=== PATIENT | female | born 2000 | race Caucasian/White ===

== ENCOUNTER 2023-01-08 18:03 | Inpatient (IN) | payer MEDICAID ==
[~2023-01-08] VITALS: Ht 165.1 cm; Wt 127.2 kg
[2023-01-08] MEDS ORDERED: MOM 30ML SUSPENSION UDC PO PRN (19:20)
[2023-01-09] VITALS (19 sets, daily range): BP systolic 118–160; BP diastolic 62–98; TEMP 96.5–98.2; O2SAT 96–99
[2023-01-09] MEDS ORDERED: LEXA1TAB PO (02:11)
[2023-01-09] MEDS ORDERED: LABE200T5 PO (02:11)
[2023-01-09] MEDS ORDERED: PANT40TA29 PO (02:11)
[2023-01-09] MEDS ORDERED: NORE0.353 PO (02:12)
[2023-01-09] MEDS ORDERED: HOME MED LIST COMPLETE! XX SCH (02:15)
[2023-01-09] MEDS: NS 1,000 ML IV SCH ×2 (02:19→10:42)
[2023-01-09 02:30] LABS: BASO % 0.4 % (0.0-1.0); EOS # 0.1 10^3/uL (0.0-0.5); EOS % 2.5 % (0.0-3.0); HEMATOCRIT 38.1 % (36.0-47.0); HEMOGLOBIN 12.7 g/dl (12.0-15.5); LYMPH # 1.5 10^3/uL (1.5-5.0); LYMPH % 29.2 % (24.0-44.0); MEAN CORPUSCULAR HGB CONC 33.3 g/dl (32.0-36.5); MEAN CORPUSCULAR VOLUME 90.1 fl (80.0-96.0); MONO # 0.4 10^3/uL (0.0-0.8); MONO % 7.8 % (2.0-8.0); NEUTROPHILS # 3.2 10^3/uL (1.5-8.5); NEUTROPHILS % 60.1 % (36.0-66.0); PLATELET COUNT, AUTOMATED 247 10^3/uL (150-450); RED BLOOD COUNT 4.23 10^6/uL (4.00-5.40); WHITE BLOOD COUNT 5.2 10^3/uL (4.0-10.0)
[2023-01-09 02:45] LABS: ALBUMIN 3.3 G/DL (3.2-5.2); ALKALINE PHOSPHATASE 357 U/L (46-116); ALT/SGPT 440 U/L (7.0-40); AST/SGOT 231 U/L (<34); BILIRUBIN,TOTAL 1.6 MG/DL (0.3-1.2); BLOOD UREA NITROGEN 7 MG/DL (9-23); CALCIUM LEVEL 8.8 MG/DL (8.5-10.1); CARBON DIOXIDE LEVEL 24 MMOL/L (20-31); CHLORIDE LEVEL 105 MMOL/L (98-107); CREATININE FOR GFR 0.59 MG/DL (0.55-1.30); GLOMERULAR FILTRATION RATE > 60.0 (>60); GLUCOSE, FASTING 107 MG/DL (60-100); POTASSIUM SERUM 3.7 MMOL/L (3.5-5.1); SODIUM LEVEL 137 MMOL/L (136-145)
[2023-01-09] MEDS ORDERED: MORPHINE 2 MG/ML 1ML VIAL IV PRN (03:00)
[2023-01-09] MEDS: HEPARIN SOD (PORCINE) 5000UNITS/ML 1ML VIAL/SYRINGE SC SCH (06:12)
[2023-01-09 08:09] LABS: HEMATOCRIT 36.6 % (36.0-47.0); HEMOGLOBIN 12.3 g/dl (12.0-15.5); MEAN CORPUSCULAR HEMOGLOBIN 30.7 pg (27.0-33.0); MEAN CORPUSCULAR HGB CONC 33.6 g/dl (32.0-36.5); MEAN CORPUSCULAR VOLUME 91.3 fl (80.0-96.0); PLATELET COUNT, AUTOMATED 221 10^3/uL (150-450); RED BLOOD COUNT 4.01 10^6/uL (4.00-5.40)
[2023-01-09] MEDS: HYDROMORPHONE HCL 0.5 MG/ 0.5 ML SYRINGE IV PRN ×5 (08:41→19:46)
[2023-01-09 08:45] LABS: ALBUMIN 3.2 G/DL (3.2-5.2); ALKALINE PHOSPHATASE 355 U/L (46-116); ALT/SGPT 423 U/L (7.0-40); AST/SGOT 191 U/L (<34); BLOOD UREA NITROGEN 7 MG/DL (9-23); CALCIUM LEVEL 8.7 MG/DL (8.5-10.1); CARBON DIOXIDE LEVEL 26 MMOL/L (20-31); CHLORIDE LEVEL 107 MMOL/L (98-107); CREATININE FOR GFR 0.63 MG/DL (0.55-1.30); GLOMERULAR FILTRATION RATE > 60.0 (>60); GLUCOSE, FASTING 101 MG/DL (60-100); POTASSIUM SERUM 3.9 MMOL/L (3.5-5.1); SODIUM LEVEL 142 MMOL/L (136-145); TOTAL PROTEIN 6.4 G/DL (5.7-8.2)
[2023-01-09] MEDS: ONDANSETRON 4MG 2ML VIAL IV PRN (14:25)
[2023-01-09] MEDS: PANTOPRAZOLE 40MG TAB (PROTONIX) PO SCH (14:25)
[2023-01-09] MEDS: LABETALOL 200 MG TAB PO SCH ×2 (14:26→20:01)
[2023-01-09] MEDS: ESCITALOPRAM OXALATE 10 MG TAB (LEXAPRO) PO SCH (14:27)
[2023-01-09] MEDS ORDERED: ISOVUE-300 61% 100ML VIAL As Ordered ONE (14:59)
[2023-01-09] MEDS ORDERED: ONDANSETRON 4MG 2ML VIAL As Ordered ONE (15:18)
[2023-01-09] MEDS ORDERED: MIDAZOLAM INJ 2MG/2ML VIAL As Ordered ONE (15:18)
[2023-01-09] MEDS ORDERED: propofoL 200 MG/20 ML VIAL As Ordered ONE (15:18)
[2023-01-09] MEDS ORDERED: ROCURONIUM BROMIDE 50MG/5ML VIAL As Ordered ONE (15:18)
[2023-01-09] MEDS ORDERED: LIDOCAINE 2% 100MG/5ML SDV (FOR ANES.) As Ordered ONE (15:18)
[2023-01-09] MEDS ORDERED: fentaNYL 250 MCG/5 ML INJECTION As Ordered ONE (15:18)
[2023-01-09] MEDS ORDERED: SUGAMMADEX SODIUM 500 MG/5 ML VIAL (BRIDION) As Ordered ONE (15:18)
[2023-01-10] VITALS (7 sets, daily range): BP systolic 124–140; BP diastolic 30–70; TEMP 96.8–97.9; O2SAT 95–98
[2023-01-10] MEDS ORDERED: UNRESOLVED CLARIFICATION ENTRY XX SCH (00:01)
[2023-01-10] MEDS: HYDROMORPHONE HCL 0.5 MG/ 0.5 ML SYRINGE IV PRN ×2 (01:37→05:17)
[2023-01-10 06:13] LABS: BASO % 0.1 % (0.0-1.0); EOS % 0.1 % (0.0-3.0); HEMATOCRIT 39.8 % (36.0-47.0); HEMOGLOBIN 13.3 g/dl (12.0-15.5); LYMPH # 1.1 10^3/uL (1.5-5.0); LYMPH % 15.4 % (24.0-44.0); MEAN CORPUSCULAR HEMOGLOBIN 30.2 pg (27.0-33.0); MEAN CORPUSCULAR HGB CONC 33.4 g/dl (32.0-36.5); MEAN CORPUSCULAR VOLUME 90.2 fl (80.0-96.0); MONO # 0.3 10^3/uL (0.0-0.8); MONO % 3.8 % (2.0-8.0); NEUTROPHILS # 5.7 10^3/uL (1.5-8.5); NEUTROPHILS % 80.3 % (36.0-66.0); PLATELET COUNT, AUTOMATED 262 10^3/uL (150-450); RED BLOOD COUNT 4.41 10^6/uL (4.00-5.40); WHITE BLOOD COUNT 7.2 10^3/uL (4.0-10.0)
[2023-01-10 06:46] LABS: ALBUMIN 3.5 G/DL (3.2-5.2); ALKALINE PHOSPHATASE 373 U/L (46-116); ALT/SGPT 377 U/L (7.0-40); AST/SGOT 107 U/L (<34); BILIRUBIN,DIRECT 0.5 MG/DL (<0.4); BILIRUBIN,TOTAL 0.9 MG/DL (0.3-1.2); BLOOD UREA NITROGEN 7 MG/DL (9-23); CALCIUM LEVEL 9.2 MG/DL (8.5-10.1); CARBON DIOXIDE LEVEL 25 MMOL/L (20-31); CHLORIDE LEVEL 104 MMOL/L (98-107); CREATININE FOR GFR 0.54 MG/DL (0.55-1.30); GLOMERULAR FILTRATION RATE > 60.0 (>60); GLUCOSE, FASTING 95 MG/DL (60-100); POTASSIUM SERUM 4.5 MMOL/L (3.5-5.1); SODIUM LEVEL 139 MMOL/L (136-145); TOTAL PROTEIN 7.1 G/DL (5.7-8.2)
[2023-01-10] MEDS: LABETALOL 200 MG TAB PO SCH ×2 (08:48→21:24)
[2023-01-10] MEDS: PANTOPRAZOLE 40MG TAB (PROTONIX) PO SCH (08:48)
[2023-01-10] MEDS: ESCITALOPRAM OXALATE 10 MG TAB (LEXAPRO) PO SCH (08:48)
[2023-01-10] MEDS: ACETAMINOPHEN TAB 650MG DOSE (2X325MG) PO PRN ×2 (08:55→12:23)
[2023-01-10] MEDS: HEPARIN SOD (PORCINE) 5000UNITS/ML 1ML VIAL/SYRINGE SC SCH ×2 (13:48→21:12)
[2023-01-10] MEDS: KETOROLAC 30 MG/ML 1ML VIAL IV PRN ×2 (14:46→21:13)
[2023-01-10] MEDS: oxyCODONE 5MG TAB PO PRN ×2 (18:17→22:46)
[2023-01-11] VITALS (7 sets, daily range): BP systolic 118–163; BP diastolic 58–105; TEMP 95.5–99.1; O2SAT 78–98
[2023-01-11] MEDS: LABETALOL 200 MG TAB PO SCH ×2 (00:33→08:35)
[2023-01-11] MEDS: HEPARIN SOD (PORCINE) 5000UNITS/ML 1ML VIAL/SYRINGE SC SCH ×3 (05:23→23:47)
[2023-01-11] MEDS: KETOROLAC 30 MG/ML 1ML VIAL IV PRN ×3 (05:27→23:48)
[2023-01-11 06:05] LABS: BASO % 0.2 % (0.0-1.0); EOS # 0.1 10^3/uL (0.0-0.5); EOS % 2.4 % (0.0-3.0); HEMOGLOBIN 12.9 g/dl (12.0-15.5); LYMPH # 2.7 10^3/uL (1.5-5.0); LYMPH % 49.4 % (24.0-44.0); MEAN CORPUSCULAR HEMOGLOBIN 30.4 pg (27.0-33.0); MEAN CORPUSCULAR HGB CONC 33.1 g/dl (32.0-36.5); MONO # 0.3 10^3/uL (0.0-0.8); MONO % 5.6 % (2.0-8.0); NEUTROPHILS # 2.3 10^3/uL (1.5-8.5); NEUTROPHILS % 42.2 % (36.0-66.0); PLATELET COUNT, AUTOMATED 238 10^3/uL (150-450); RED BLOOD COUNT 4.24 10^6/uL (4.00-5.40); WHITE BLOOD COUNT 5.4 10^3/uL (4.0-10.0)
[2023-01-11 06:44] LABS: ALBUMIN 3.2 G/DL (3.2-5.2); ALKALINE PHOSPHATASE 291 U/L (46-116); ALT/SGPT 271 U/L (7.0-40); AST/SGOT 75 U/L (<34); BILIRUBIN,DIRECT 0.3 MG/DL (<0.4); BILIRUBIN,TOTAL 0.7 MG/DL (0.3-1.2); BLOOD UREA NITROGEN 13 MG/DL (9-23); CALCIUM LEVEL 8.8 MG/DL (8.5-10.1); CARBON DIOXIDE LEVEL 28 MMOL/L (20-31); CHLORIDE LEVEL 105 MMOL/L (98-107); CREATININE FOR GFR 0.66 MG/DL (0.55-1.30); GLOMERULAR FILTRATION RATE > 60.0 (>60); GLUCOSE, FASTING 84 MG/DL (60-100); SODIUM LEVEL 141 MMOL/L (136-145); TOTAL PROTEIN 6.6 G/DL (5.7-8.2)
[2023-01-11] MEDS ORDERED: ceFAZolin SOD 3 GM in IV 1 EA IV ONE (07:55)
[2023-01-11] MEDS: PANTOPRAZOLE 40MG TAB (PROTONIX) PO SCH (08:32)
[2023-01-11] MEDS: ESCITALOPRAM OXALATE 10 MG TAB (LEXAPRO) PO SCH (08:32)
[2023-01-11 08:34] LABS: HCG, SERUM QUALITATIVE NEGATIVE (NEGATIVE)
[2023-01-11] MEDS ORDERED: ceFAZolin SOD 2 GM in IV 1 EA IV ONE (15:00)
[2023-01-11] MEDS ORDERED: ceFAZolin SOD 1 GM in D5W MINI-BAG PLUS 50 ML IV ONE (15:00)
[2023-01-11] MEDS ORDERED: INDOCYANINE GREEN 25MG VIAL (IC-GREEN) As Ordered ONE (15:11)
[2023-01-11] MEDS ORDERED: fentaNYL 250 MCG/5 ML INJECTION As Ordered ONE (15:20)
[2023-01-11] MEDS ORDERED: MIDAZOLAM INJ 2MG/2ML VIAL As Ordered ONE (15:21)
[2023-01-11] MEDS ORDERED: propofoL 200 MG/20 ML VIAL As Ordered ONE ×2 (15:21→16:02)
[2023-01-11] MEDS ORDERED: ONDANSETRON 4MG 2ML VIAL As Ordered ONE (15:21)
[2023-01-11] MEDS ORDERED: LIDOCAINE 2% 100MG/5ML SDV (FOR ANES.) As Ordered ONE (15:21)
[2023-01-11] MEDS ORDERED: KETOROLAC 60MG 2ML VIAL As Ordered ONE (15:21)
[2023-01-11] MEDS ORDERED: ACETAMINOPHEN 1000MG 100ML IV BAG As Ordered ONE (15:21)
[2023-01-11] MEDS ORDERED: SUGAMMADEX SODIUM 500 MG/5 ML VIAL (BRIDION) As Ordered ONE (15:21)
[2023-01-11] MEDS ORDERED: ROCURONIUM BROMIDE 50MG/5ML VIAL As Ordered ONE (15:21)
[2023-01-11] MEDS: ONDANSETRON 4MG 2ML VIAL IV PRN (15:25)
[2023-01-11] MEDS ORDERED: INDOCYANINE GREEN 25MG VIAL (IC-GREEN) IV ONE (16:00)
[2023-01-11] MEDS ORDERED: SODIUM CHLORIDE 0.9% INJ 10 ML SYR IV ONE (16:00)
[2023-01-11] MEDS ORDERED: ceFAZolin 1GM VIAL As Ordered ONE (18:02)
[2023-01-11] MEDS ORDERED: ceFAZolin 2 GM/D5W 50 ML IV BAG As Ordered ONE (18:02)
[2023-01-11] MEDS ORDERED: ePHEDrine SULFATE 25 MG/5 ML(5MG/ML) SYRINGE As Ordered ONE (18:35)
[2023-01-11] MEDS ORDERED: ONDANSETRON 4MG 2ML VIAL IV PRN ×2 (19:30→19:35)
[2023-01-11] MEDS ORDERED: LR 1,000 ML IV SCH ×2 (19:30→19:35)
[2023-01-11] MEDS ORDERED: diphenhydrAMINE 50MG/ML VIAL IV PRN (19:30)
[2023-01-11] MEDS ORDERED: MEPERIDINE 25 MG/ML 1ML VIAL IV PRN (19:30)
[2023-01-11] MEDS ORDERED: METOCLOPRAMIDE INJ 10MG/2ML VIAL IV PRN (19:30)
[2023-01-11] MEDS ORDERED: oxyCODONE 5MG TAB PO PRN (19:35)
[2023-01-11] MEDS ORDERED: fentaNYL 100 MCG/2 ML INJECTION IV PRN (19:35)
[2023-01-11] MEDS: MORPHINE 2 MG/ML 1ML VIAL IV PRN ×4 (19:43→20:05)
[2023-01-12] VITALS (7 sets, daily range): BP systolic 127–151; BP diastolic 70–93; TEMP 96.2–96.9; O2SAT 92–98
[2023-01-12] MEDS: oxyCODONE 5MG TAB PO PRN (03:16)
[2023-01-12] MEDS: HEPARIN SOD (PORCINE) 5000UNITS/ML 1ML VIAL/SYRINGE SC SCH (06:04)
[2023-01-12 07:20] LABS: BASO % 0.1 % (0.0-1.0); EOS % 0.2 % (0.0-3.0); HEMATOCRIT 39.5 % (36.0-47.0); HEMOGLOBIN 13.2 g/dl (12.0-15.5); LYMPH # 1.2 10^3/uL (1.5-5.0); LYMPH % 13.7 % (24.0-44.0); MEAN CORPUSCULAR HEMOGLOBIN 30.1 pg (27.0-33.0); MEAN CORPUSCULAR HGB CONC 33.4 g/dl (32.0-36.5); MONO # 0.4 10^3/uL (0.0-0.8); MONO % 4.4 % (2.0-8.0); NEUTROPHILS # 6.8 10^3/uL (1.5-8.5); NEUTROPHILS % 81.4 % (36.0-66.0); PLATELET COUNT, AUTOMATED 254 10^3/uL (150-450); RED BLOOD COUNT 4.39 10^6/uL (4.00-5.40); WHITE BLOOD COUNT 8.4 10^3/uL (4.0-10.0)
[2023-01-12 07:53] LABS: ALBUMIN 3.5 G/DL (3.2-5.2); ALKALINE PHOSPHATASE 258 U/L (46-116); ALT/SGPT 199 U/L (7.0-40); AST/SGOT 52 U/L (<34); BILIRUBIN,DIRECT 0.4 MG/DL (<0.4); BILIRUBIN,TOTAL 0.8 MG/DL (0.3-1.2); BLOOD UREA NITROGEN 9 MG/DL (9-23); CARBON DIOXIDE LEVEL 27 MMOL/L (20-31); CHLORIDE LEVEL 100 MMOL/L (98-107); CREATININE FOR GFR 0.53 MG/DL (0.55-1.30); GLOMERULAR FILTRATION RATE > 60.0 (>60); GLUCOSE, FASTING 94 MG/DL (60-100); POTASSIUM SERUM 4.2 MMOL/L (3.5-5.1); SODIUM LEVEL 135 MMOL/L (136-145); TOTAL PROTEIN 7.2 G/DL (5.7-8.2)
[2023-01-12] MEDS: LABETALOL 200 MG TAB PO SCH (08:44)
[2023-01-12] MEDS: KETOROLAC 30 MG/ML 1ML VIAL IV PRN (08:45)
[2023-01-12] MEDS: ESCITALOPRAM OXALATE 10 MG TAB (LEXAPRO) PO SCH (08:46)
[2023-01-12] MEDS: PANTOPRAZOLE 40MG TAB (PROTONIX) PO SCH (08:46)
[2023-01-12] MEDS ORDERED: OXYC1TAB23 PO (09:08)
[2023-01-12] MEDS ORDERED: IBUP-1114 PO (09:08)
[2023-01-12] MEDS ORDERED: ACET-683 PO (09:08)
== END 2023-01-12 13:05 | disposition home or self-care (01) | DRG 263 ==
LOC: M PCU 01-09 01:00 → M PED 01-10 01:05 → M MS4PR 01-10 20:38 → M MS5PR 01-11 18:50
PROVIDERS: ADMIT Internal Medicine; ATTEND Student in an Organized Health Care Education/Training Program
PROC: 0FC98ZZ Extirpation of Matter from Common Bile Duct, Via Natural or Artificial Opening Endoscopic (ICD-10-PCS; 2023-01-09)
PROC: BF140ZZ Fluoroscopy of Gallbladder, Bile Ducts and Pancreatic Ducts using High Osmolar Contrast (ICD-10-PCS; 2023-01-09)
PROC: 8E0W4CZ Robotic Assisted Procedure of Trunk Region, Percutaneous Endoscopic Approach (ICD-10-PCS; 2023-01-11)
PROC: 0FT44ZZ Resection of Gallbladder, Percutaneous Endoscopic Approach (ICD-10-PCS; principal; 2023-01-11 17:00)
DX: K80.50 Calculus of bile duct without cholangitis or cholecystitis without obstruction (principal); R17 Unspecified jaundice; I10 Essential (primary) hypertension; Z68.42 Body mass index [BMI] 45.0-49.9, adult; E66.9 Obesity, unspecified; K21.9 Gastro-esophageal reflux disease without esophagitis; F32.A Depression, unspecified; Z88.0 Allergy status to penicillin; Z88.8 Allergy status to other drugs, medicaments and biological substances; Z79.899 Other long term (current) drug therapy